=== PATIENT | male | born 1950 | race Caucasian/White ===

== ENCOUNTER 2017-08-06 19:17 | Observation (INO) | payer BC ==
[~2017-08-06] VITALS: Ht 177.8 cm; Wt 96.0 kg
[2017-08-06 19:31] VITALS: BP 226/107; PULSE 101; RESP 22; TEMP 100.2; O2SAT 94
--- NOTE | 2017-08-06 20:05 | PD ---
HPI Chief Complaint: Cold / Flu Symptoms Time Seen by Provider: 19:46 Travel History International Travel<30 days: No Contact w/Intl Traveler<30days: No Traveled to known affect area: No History of Present Illness HPI Patient is a 66-year-old male who for the last week is a coughing shortness of breath bronchitis-like feeling bringing up green phlegm. he is taking over-the- counter phlegm loosening or he says as well as Tylenol without any relief of his symptoms. Patient has not seen a doctor in many years his blood pressure when I walk in the room is 236/110. He says he knows he has hypertension but has not seen a doctor in years is not taking any meds. Patient said he had a stress test 15 years ago that was normal and he does some aerobic exercise he teaches karmilly at the . Denies chest pain but + shortness of breath Main complaint is shortness of breath getting worse over the last week not responding to tewi-xmb-trjwzgk medications . Worsens when he lies flat and then he wakes up feeling as if he suffocating . and get short of breath with any exertion Sx getting worse PFSH Past Medical History Tetanus Vaccination: > 5 Years Influenza Vaccination: No Social History Alcohol Use: Yes (5 Drinks/day) Tobacco Use: Yes (1 PPD) Substance Use: Yes (Marijuana/Daily ) Allergies-Medications (Allergen,Severity, Reaction): Coded Allergies: No Known Allergies (Unverified , 08/06/17) Reported Meds & Prescriptions Reported Meds & Active Scripts Active Review of Systems Except as stated in HPI: all other systems reviewed are Neg General / Constitutional: Positive: Fever Respiratory: Positive: Cough, Shortness of Breath, Wheezing Physical Exam Narrative GENERAL: awake alert no signs of resp distress SKIN: Warm and dry. HEAD: Atraumatic. Normocephalic. EYES: Pupils equal and round. No scleral icterus. No injection or drainage. ENT: No nasal bleeding or discharge. Mucous membranes pink and moist. NECK: Trachea midline. No JVD. CARDIOVASCULAR: Regular rate and rhythm. RESPIRATORY: diffuse wheeze expiratory in all og bilateral GASTROINTESTINAL: Abdomen soft, non-tender, nondistended. Hepatic and splenic margins not palpable. MUSCULOSKELETAL: Extremities without clubbing, cyanosis, or edema. No obvious deformities. NEUROLOGICAL: Awake and alert. No obvious cranial nerve deficits. Motor grossly within normal limits. Five out of 5 muscle strength in the arms and legs. Normal speech. PSYCHIATRIC: Appropriate mood and affect; insight and judgment normal. Data Data Last Documented VS Orders Orders Albuterol-Ipratropium Neb (Duoneb Neb) (08/06/17 20:15) Methylprednisolone So Succ Inj (Solumedr (08/06/17 20:15) Lisinopril (Prinivil) (08/06/17 20:15) Guaifen-Cod 200-20 Mg/10ml Liq (Robituss (08/06/17 20:15) Complete Blood Count With Diff (08/06/17 20:03) Comprehensive Metabolic Panel (08/06/17 20:03) Chest, Pa & Lat (08/06/17 ) Ketorolac Inj (Toradol Inj) (08/06/17 21:00) Influenzae A/B Antigen (08/06/17 20:53) Albuterol-Ipratropium Neb (Duoneb Neb) (08/06/17 22:00) Levofloxacin 750 Mg Premix Inj (Levaquin (08/06/17 23:00) Admit Order (Ed Use Only) (08/07/17 01:46) Labs Laboratory Tests Test 08/06/17 20:10 White Blood Count 5.6 TH/MM3 Red Blood Count 5.65 MIL/MM3 Hemoglobin 16.0 GM/DL Hematocrit 49.0 % Mean Corpuscular Volume 86.8 FL Mean Corpuscular Hemoglobin 28.3 PG Mean Corpuscular Hemoglobin Concent 32.7 % Red Cell Distribution Width 13.1 % Platelet Count 137 TH/MM3 Mean Platelet Volume 9.0 FL Neutrophils (%) (Auto) 71.4 % Lymphocytes (%) (Auto) 17.1 % Monocytes (%) (Auto) 10.6 % Eosinophils (%) (Auto) 0.1 % Basophils (%) (Auto) 0.8 % Neutrophils # (Auto) 4.0 TH/MM3 Lymphocytes # (Auto) 1.0 TH/MM3 Monocytes # (Auto) 0.6 TH/MM3 Eosinophils # (Auto) 0.0 TH/MM3 Basophils # (Auto) 0.0 TH/MM3 CBC Comment DIFF FINAL Differential Comment Blood Urea Nitrogen 9 MG/DL Creatinine 0.89 MG/DL Random Glucose 101 MG/DL Total Protein 7.8 GM/DL Albumin 3.9 GM/DL Calcium Level 9.0 MG/DL Alkaline Phosphatase 94 U/L Aspartate Amino Transf (AST/SGOT) 47 U/L Alanine Aminotransferase (ALT/SGPT) 50 U/L Total Bilirubin 1.0 MG/DL Sodium Level 134 MEQ/L Potassium Level 3.6 MEQ/L Chloride Level 97 MEQ/L Carbon Dioxide Level 27.6 MEQ/L Anion Gap 9 MEQ/L Estimat Glomerular Filtration Rate 86 ML/MIN MDM Medical Decision Making Medical Screen Exam Complete: Yes Emergency Medical Condition: Yes Differential Diagnosis Bronchitis vs FLU vs reactive airway due to URI vs new onset COPD or New onset CHF Narrative Course CHEST XRAY no obvious PNA , pt given NEBS and Solumedrol for inflammation and still desaturation on RA to 88% and then Levaquin IV and another Duoneb 4 hr observation hoping for improvemen to possible t home discharge and outpt treatment , still on RA desaturates to 88 needs admission to observation Diagnosis Primary Impression: Bronchitis Scripts Ipratropium-Albuterol Inh (Combivent Respimat Inh) 20-100 Care Home/Act Aero 1 PUFF INH QID for Asthma Management, #1 INHALER 0 Refills Prov: Joe Leyva 08/08/17 [guaiFEN-COD 200-20 MG/10ML LIQ] 10 ML SYRP No Conflict Check 10 ML PO Q6H Y for COUGH for 3 Days, #5 OZ Prov: Joe Leyva 08/08/17 Methylprednisolone Dosepak (Medrol Dosepak) 4 Mg Dspk 4 MG PO DIRECTED, #1 DSPK 0 Refills Per Pharmacist direction Prov: Joe Leyva 08/08/17 Lisinopril (Lisinopril) 10 Mg Tab 10 MG PO DAILY for Blood Pressure Management for 30 Days, #30 TAB Prov: Joe Leyva 08/08/17 Levofloxacin (Levaquin) 750 Mg Tablet 750 MG PO Q24H for Infection for 7 Days, #7 TAB Prov: Joe Leyva 08/08/17 Sonido Avina MD August 06, 2017 20:05
[2017-08-06 20:10] VITALS: BP 178/85; PULSE 98; RESP 22; O2SAT 96
[2017-08-06] MEDS ORDERED: guaiFENesin/CODEINE SYRUP 200 MG/20 MG/10 ML CUP PO ONE (20:15)
[2017-08-06] MEDS ORDERED: LISINOPRIL 20 MG TAB PO ONE (20:15)
[2017-08-06] MEDS ORDERED: RESP: ALBUTEROL 2.5 MG/IPRATROPIUM 0.5 MG NEB (SCH) NEB ONE ×2 (20:15→22:00)
[2017-08-06] MEDS ORDERED: methylPREDNISolone SOD SUCC 125 MG/2 ML VIAL IV PUSH ONE (20:15)
[2017-08-06 20:21] LABS: BASOPHIL % 0.8 % (0.0-2.0); EOSINOPHIL % 0.1 % (0.0-4.0); LYMPH % 17.1 % (9.0-44.0); MEAN CELL VOLUME 86.8 FL (80.0-100.0); MEAN CORPUSCULAR HEMOGLOBIN 28.3 PG (27.0-34.0); MEAN CORPUSCULAR HGB CONC 32.7 % (32.0-36.0); MONO % 10.6 % (0.0-8.0); MONOCYTE # 0.6 TH/MM3 (0-0.9); NEUT % 71.4 % (16.0-70.0); PLATELET COUNT 137 TH/MM3 (150-450); RED BLOOD COUNT 5.65 MIL/MM3 (4.50-5.90); RED CELL DISTRIBUTION WIDTH 13.1 % (11.6-17.2); WHITE BLOOD COUNT 5.6 TH/MM3 (4.0-11.0)
[2017-08-06 20:30] LABS: CHLORIDE 97 MEQ/L (98-107); SODIUM (NA) 134 MEQ/L (136-145)
[2017-08-06 20:34] LABS: ALBUMIN 3.9 GM/DL (3.4-5.0); BICARBONATE 27.6 MEQ/L (21.0-32.0); BLOOD UREA NITROGEN 9 MG/DL (7-18); GLUCOSE,RANDOM 101 MG/DL (74-106)
[2017-08-06 20:37] LABS: ALT (GPT) 50 U/L (12-78); AST (GOT) 47 U/L (15-37); CREATININE 0.89 MG/DL (0.60-1.30); GLOMERULAR FILTRATION RATE 86 ML/MIN (>89)
[2017-08-06 20:38] LABS: TOTAL PROTEIN 7.8 GM/DL (6.4-8.2)
[2017-08-06 20:40] LABS: ALKALINE PHOSPHATASE 94 U/L (45-117)
[2017-08-06] MEDS ORDERED: KETOROLAC TROMETHAMINE 30 MG/ML (IVP) VIAL IV PUSH ONE (21:00)
--- NOTE | 2017-08-06 21:29 | RADRPT ---
EXAM DATE/TIME: 08/06/2017 20:37 [facility] COMPARISON: No previous studies available for comparison. INDICATIONS : Cough, shortness of breath, fever for 1 week MEDICAL HISTORY : None. SURGICAL HISTORY : None. ENCOUNTER: Initial ACUITY: 1 week PAIN SCORE: 5/10 LOCATION: Bilateral chest FINDINGS: The heart size is normal. The lungs are free of focal consolidation. The lungs do appear mildly hyper inflated on the lateral view. There is borderline prominence of interstitium. CONCLUSION: Questionable prominence of the interstitium otherwise negative chest x-ray. Stewart Spencer MD on August 06, 2017 at 21:26 Board Certified Radiologist. This report was verified electronically.
[2017-08-06 22:45] VITALS: BP 169/88; PULSE 88; RESP 18; O2SAT 97
[2017-08-06] MEDS ORDERED: LEVOFLOXACIN 750 MG PREMIX INJ 150 ML IV ONE (23:00)
[2017-08-07] VITALS (13 sets, daily range): BP systolic 157–199; BP diastolic 68–93; PULSE 75–92; RESP 18–22; TEMP 97.5–98.3; O2SAT 90–99
[2017-08-07] MEDS ORDERED: ENALAPRILAT 1.25 MG/ML VIAL IV PUSH PRN (02:00)
[2017-08-07] MEDS ORDERED: SODIUM CHLORIDE 0.9% FLUSH 10 ML FLUSH IV FLUSH PRN (02:00)
[2017-08-07] MEDS ORDERED: RESP: ALBUTEROL 2.5 MG/3 ML NEB (PRN) INH (02:00)
[2017-08-07] MEDS: HEPARIN SODIUM - SQ 10,000 UNITS/ML VIAL SQ SCH ×2 (02:23→14:24)
[2017-08-07] MEDS: methylPREDNISolone SOD SUCC 125 MG/2 ML VIAL IV PUSH SCH ×4 (02:24→20:05)
[2017-08-07] MEDS: RESP: ALBUTEROL 2.5 MG/IPRATROPIUM 0.5 MG NEB (SCH) INH ×4 (04:07→21:35)
[2017-08-07] MEDS: SODIUM CHLORIDE 0.9% FLUSH 10 ML FLUSH IV FLUSH SCH ×2 (08:59→19:40)
[2017-08-07 09:01] LABS: TROPONIN I LESS THAN 0.02 NG/ML (0.02-0.05)
[2017-08-07] MEDS ORDERED: IOHEXOL 350 MG/ML 10 ML VIAL (for RAD DIAG) IVCONTRAST ONE (11:40)
--- NOTE | 2017-08-07 11:52 | RADRPT ---
EXAM DATE/TIME: 08/07/2017 11:30 [facility] COMPARISON: No previous studies available for comparison. INDICATIONS : Short of breath, cough, fever and elevated D-dimer x 1 week. IV CONTRAST: 75 cc Omnipaque 350 (iohexol) IV RADIATION DOSE: 18.32 CTDIvol (mGy) MEDICAL HISTORY : Cardiovascular disease. Hypertension. SURGICAL HISTORY : None. ENCOUNTER: Initial ACUITY: 1 week PAIN SCALE: 0/10 LOCATION: chest TECHNIQUE: Volumetric scanning of the chest was performed using a pulmonary embolism protocol MIP images were re constructed. Using automated exposure control and adjustment of the mA and/or kV according to patien t size, radiation dose was kept as low as reasonably achievable to obtain optimal diagnostic quality images. DICOM format image data is available electronically for review and comparison. Follow-up recommendations for detected pulmonary nodules are based at a minimum on nodule size and pa tient risk factors according to Fleischner Society Guidelines. FINDINGS: PULMONARY ARTERIES: No filling defects are seen in the pulmonary arteries through the segmental level. LUNGS: There is no consolidation or pneumothorax . No concerning pulmonary nodule is visualized. PLEURAE: There is no pleural thickening or pleural effusion. MEDIASTINUM: Slight prominence of bilateral hilar magalie tissue which is likely reactive. No evidence of mediastina l adenopathy. Coronary calcifications noted. Small hiatal hernia. MUSCULOSKELETAL: Within normal limits for patient age. MISCELLANEOUS: The visualized upper abdominal organs demonstrate no acute abnormality. CONCLUSION: No evidence of pulmonary embolism Stewart Hawkins MD on August 07, 2017 at 11:43 Board Certified Radiologist. This report was verified electronically.
[2017-08-07] MEDS ORDERED: ACETAMINOPHEN 325 MG TAB PO PRN (13:45)
[2017-08-07] MEDS ORDERED: MAGNESIUM HYDROXIDE SUSP 30 ML CUP PO PRN (13:45)
[2017-08-07] MEDS ORDERED: TEMAZEPAM 15 MG CAP PO PRN (13:45)
[2017-08-07] MEDS ORDERED: DOCUSATE SODIUM 100 MG CAP PO PRN (13:45)
[2017-08-07] MEDS ORDERED: CALCIUM CARBONATE 500 MG CHEWABLE TAB CHEW PRN (13:45)
[2017-08-07] MEDS ORDERED: ONDANSETRON HCL 4 MG/2 ML VIAL IV PUSH PRN (13:45)
[2017-08-07] MEDS ORDERED: guaiFENesin/CODEINE SYRUP 200 MG/20 MG/10 ML CUP PO PRN (14:00)
--- NOTE | 2017-08-07 14:05 | HHI.HP ---
[facility] No Primary Care Physician Admission Diagnosis Bronchitis Desaturation Diagnoses: (1) Shortness of breath Diagnosis: Principal (2) Accelerated hypertension Diagnosis: Principal (3) Chronic obstructive pulmonary disease Diagnosis: Principal Chief Complaint: Shortness of breath, dyspnea Travel History International Travel<30 Days: No Contact w/Intl Traveler <30 Da: No Traveled to Known Affected Are: No History of Present Illness 66-year-old male with known history of untreated hypertension, polymyalgia rheumatica who presented the hospital because of shortness of breath , difficulty breathing. Patient indicates that his lobrhe-hy-ueo had flu symptoms approximately 2-3 weeks ago than his developed the same symptoms. Unfortunately he started the same symptoms on Friday with fever, chills, cough , congestion. He had been taken Tylenol, cough medicine without any significant relief. He got to the point where he had significant shortness of breath, he had significantly decreased appetite where he has not really ate anything in 2 days, he cannot sleep for 2 days and because of those reasons he came to emergency department for evaluation. Patient had workup done in the emergency department and it was indicated that he had significant shortness of breath with easy desaturations. There was hypertensive urgency on presentation. Patient was given nebulizer treatments, Toradol, lisinopril in the emergency department with improvement of his blood pressure and symptoms. Is recommended by the ER physician the patient be observed in the hospital for further recommendations and management. Patient denied any chest pain, nausea, vomiting, diarrhea, abdominal pain. Review of Systems Constitutional: COMPLAINS OF: Fever, Change in appetite Respiratory: COMPLAINS OF: Cough, Shortness of breath Cardiovascular: COMPLAINS OF: Dyspnea on Exertion, Orthopnea Except as stated in HPI: all other systems reviewed are Neg Past Family Social History Past Medical History Hypertension, untreated Polymyalgia rheumatica Chronic left knee pain Polysubstance abuse Past Surgical History Left knee meniscus repair Reported Medications No home medication Allergies: Coded Allergies: No Known Allergies (Unverified , 08/06/17) Family History Reviewed is significant for mother having breast cancer. Patient indicates that by the end of his parents live they pretty much had all medical conditions. Social History Patient does smoke a pack of cigarettes a day since he was 31 years old. Patient does drink at least 5 alcoholic beverages nightly between 8 and 10 PM. Patient also uses marijuana daily. Patient also uses kratom daily for pain relief Physical Exam Vital Signs Vital Signs Date Time Temp Pulse Resp B/P (MAP) Pulse Ox O2 Delivery O2 Flow Rate FiO2 08/07/17 12:30 98.2 92 20 166/80 (108) 95 08/07/17 09:33 95 Nasal Cannula 2.00 08/07/17 08:59 94 Nasal Cannula 2.00 08/07/17 08:38 97.5 86 19 165/76 (105) 94 08/07/17 04:30 180/76 (110) Automatic Cuff 08/07/17 04:07 98 Nasal Cannula 2.00 08/07/17 03:00 97.9 75 22 199/93 (128) 98 08/07/17 03:00 98 Nasal Cannula 2.00 08/07/17 02:50 08/07/17 02:28 77 18 157/68 (97) 99 Nasal Cannula 2.00 08/06/17 22:45 88 18 169/88 (115) 97 Nasal Cannula 2.00 08/06/17 20:10 98 22 178/85 (116) 96 Nasal Cannula 2.00 08/06/17 19:46 98 24 95 Nasal Cannula 2.00 08/06/17 19:31 100.2 101 22 226/107 (146) 94 Physical Exam GENERAL: Well-developed, well-nourished, in no acute distress. alert and orientated HEENT: Head is normocephalic without any lesions or masses noted. Facial features are symmetric. Eyes: Pupils equal round reactive to light. Extraocular muscles are intact. Conjunctivae were clear. Oropharyngeal: Pharynx without any erythema edema. Tongue is midline without deviation. Buccal mucosa is moist without any masses or lesions NECK: Supple without any masses. Trachea midline no deviation. No JVD, no bruits are appreciated CARDIAC: Regular rhythm, regular rate. S1/S2 are heard. No murmurs gallops or rubs. LUNGS: Mild fine wheezing noted in the bases. No rhonchi or rales. No use of accessory muscles on inspiration or expiration. ABDOMEN: Soft, nontender. Nondistended. Bowel sounds heard in all 4 quadrants. No organomegaly or masses. Negative rebound, negative guarding EXTREMITIES: No edema, pulses are equal bilaterally. No cyanosis or clubbing NEUROLOGY: Mood and affect appear appropriate. Cranial nerves II through XII grossly intact. Muscle strength 5/5 in upper and lower extremities bilaterally. Deep tendon reflexes are 2+ in upper and lower extremities bilaterally. Laboratory Laboratory Tests Test 08/06/17 20:10 08/07/17 03:00 08/07/17 07:50 White Blood Count 5.6 Red Blood Count 5.65 Hemoglobin 16.0 Hematocrit 49.0 Mean Corpuscular Volume 86.8 Mean Corpuscular Hemoglobin 28.3 Mean Corpuscular Hemoglobin Concent 32.7 Red Cell Distribution Width 13.1 Platelet Count 137 Mean Platelet Volume 9.0 Neutrophils (%) (Auto) 71.4 Lymphocytes (%) (Auto) 17.1 Monocytes (%) (Auto) 10.6 Eosinophils (%) (Auto) 0.1 Basophils (%) (Auto) 0.8 Neutrophils # (Auto) 4.0 Lymphocytes # (Auto) 1.0 Monocytes # (Auto) 0.6 Eosinophils # (Auto) 0.0 Basophils # (Auto) 0.0 CBC Comment DIFF FINAL Differential Comment Blood Urea Nitrogen 9 Creatinine 0.89 Random Glucose 101 Total Protein 7.8 Albumin 3.9 Calcium Level 9.0 Alkaline Phosphatase 94 Aspartate Amino Transf (AST/SGOT) 47 Alanine Aminotransferase (ALT/SGPT) 50 Total Bilirubin 1.0 Sodium Level 134 Potassium Level 3.6 Chloride Level 97 Carbon Dioxide Level 27.6 Anion Gap 9 Estimat Glomerular Filtration Rate 86 Urine Opiates Screen POS Urine Barbiturates Screen NEG Urine Amphetamines Screen NEG Urine Benzodiazepines Screen NEG Urine Cocaine Screen NEG Urine Cannabinoids Screen POS D-Dimer Quantitative (PE/DVT) 0.55 Total Creatine Kinase 200 Creatine Kinase MB 3.1 Troponin I LESS THAN 0.02 Date/Time Source Procedure Growth Status 08/06/17 21:00 Nasal Aspirate Influenza Types A,B Antigen (DAYRON) - Final NEGATIVE FOR FLU A AND B ANTIGEN.... Complete Result Diagram: 08/06/17200908/06/172009 Imaging Last Impressions CT Angiography 08/07/17 0000 Signed Impressions: Service Date/Time: July 11:30 - CONCLUSION: No evidence of pulmonary embolism Stewart Hawkins MD Chest X-Ray 08/06/17 0000 Signed Impressions: Service Date/Time: Sunday, August 06, 2017 20:37 - CONCLUSION: Questionable prominence of the interstitium otherwise negative chest x-ray. MD Christiane Reed VTE Risk Assessment Caprini VTE Risk Assessment: Mod/High Risk (score >= 2) Caprini Risk Assessment Model Point Value = 1 Point Value = 2 Point Value = 3 Point Value = 5 Age 41-60 Minor surgery BMI > 25 kg/m2 Swollen legs Varicose veins or History of unexplained or recurrent spontaneous Oral contraceptives or hormone replacement Sepsis (< 1 month) Serious lung disease, including pneumonia (< 1 month) Abnormal pulmonary function Acute myocardial infarction Congestive heart failure (< 1 month) History of inflammatory bowel disease Medical patient at bed rest Age 61-74 Arthroscopic surgery Major open surgery (> 45 min) Laparoscopic surgery (> 45 min) Malignancy Confined to bed (> 72 hours) Immobilizing plaster cast Central venous access Age >= 75 History of VTE Family history of VTE Factor V Leiden Prothrombin [id number] Lupus anticoagulant Anticardiolipin antibodies Elevated serum homocysteine Heparin-induced thrombocytopenia Other congenital or acquired thrombophilia Stroke (< 1 month) Elective arthroplasty Hip, pelvis, or leg fracture Acute spinal cord injury (< 1 month) Prophylaxis Regimen Total Risk Factor Score Risk Level Prophylaxis Regimen 0-1 Low Early ambulation 2 Moderate Order ONE of the following: *Sequential Compression Device (SCD) *Heparin 5000 units SQ BID 3-4 Higher Order ONE of the following medications: *Heparin 5000 units SQ TID *Enoxaparin/Lovenox 40 mg SQ daily (WT < 150 kg, CrCl > 30 mL/min) *Enoxaparin/Lovenox 30 mg SQ daily (WT < 150 kg, CrCl > 10-29 mL/min) *Enoxaparin/Lovenox 30 mg SQ BID (WT < 150 kg, CrCl > 30 mL/min) AND/OR *Sequential Compression Device (SCD) 5 or more Highest Order ONE of the following medications: *Heparin 5000 units SQ TID (Preferred with Epidurals) *Enoxaparin/Lovenox 40 mg SQ daily (WT < 150 kg, CrCl > 30 mL/min) *Enoxaparin/Lovenox 30 mg SQ daily (WT < 150 kg, CrCl > 10-29 mL/min) *Enoxaparin/Lovenox 30 mg SQ BID (WT < 150 kg, CrCl > 30 mL/min) AND *Sequential Compression Device (SCD) Assessment and Plan Assessment and Plan 66-year-old male who presented the hospital because of shortness of breath, dyspnea Shortness of breath, dyspnea which could be related to multiple etiologies to include upper respiratory viral infection, COPD, pulmonary emboli, acute coronary event, hypertensive urgency -Chest x-ray did not indicate any acute abnormality -Influenza testing was negative -D-dimer was elevated, pulmonary angiogram was performed which did not indicate any pulmonary emboli -Cardiac enzyme and EKG were performed which did not indicate any acute coronary event -Likely patient has acute exacerbation of chronic obstructive pulmonary disease secondary to recent viral infection Acute exacerbation of chronic obstructive pulmonary disease -Continue O2 sat mentation maintain O2 sats greater than 92% -Continue Levaquin 750 mg daily -Continue Solu-Medrol 60 mg IV every 6 hours -Continue duo nebs -Start Robitussin-AC for underlying cough Hypertension, presenting with accelerated hypertension -Start lisinopril 10 mg daily -Vasotec IV as needed Polysubstance abuse -Patient counseled on cessation DVT prevention -Subcutaneous heparin Joe Leyva August 07, 2017 14:05
[2017-08-07] MEDS: LISINOPRIL 10 MG TAB PO SCH (14:23)
--- NOTE | 2017-08-07 19:06 | EKG ---
Date Performed: 08/07/2017 Time Performed: 08:04:50 PTAGE: 66 years EKG: Sinus rhythm NONSPECIFIC ST & T-WAVE ABNORMALITY BORDERLINE ECG NO PREVIOUS TRACING DOCTOR: Soto Boogie Interpretating Date/Time 08/07/2017 19:05:44
[2017-08-07] MEDS ORDERED: LEVOFLOXACIN 750 MG TAB PO SCH (23:00)
[2017-08-08] VITALS: BP 143/74; PULSE 88; RESP 20; TEMP 97.7; O2SAT 94
[2017-08-08] MEDS: HEPARIN SODIUM - SQ 10,000 UNITS/ML VIAL SQ SCH ×2 (02:30→14:00)
[2017-08-08] MEDS: methylPREDNISolone SOD SUCC 125 MG/2 ML VIAL IV PUSH SCH ×3 (02:31→14:00)
[2017-08-08] MEDS: RESP: ALBUTEROL 2.5 MG/IPRATROPIUM 0.5 MG NEB (SCH) INH ×2 (03:56→10:39)
[2017-08-08 06:57] LABS: EOSINOPHIL % 0.1 % (0.0-4.0); HEMATOCRIT 45.9 % (39.0-51.0); LYMPH % 5.6 % (9.0-44.0); LYMPHOCYTE # 0.4 TH/MM3 (1.0-4.8); MEAN CELL VOLUME 87.6 FL (80.0-100.0); MEAN CORPUSCULAR HEMOGLOBIN 28.6 PG (27.0-34.0); MEAN CORPUSCULAR HGB CONC 32.7 % (32.0-36.0); MEAN PLATELET VOLUME 9.3 FL (7.0-11.0); MONO % 4.4 % (0.0-8.0); MONOCYTE # 0.3 TH/MM3 (0-0.9); NEUT % 89.9 % (16.0-70.0); PLATELET COUNT 132 TH/MM3 (150-450); RED BLOOD COUNT 5.24 MIL/MM3 (4.50-5.90); RED CELL DISTRIBUTION WIDTH 13.1 % (11.6-17.2); WHITE BLOOD COUNT 7.7 TH/MM3 (4.0-11.0)
[2017-08-08 07:09] LABS: BICARBONATE 29.2 MEQ/L (21.0-32.0); CALCIUM 8.7 MG/DL (8.5-10.1)
[2017-08-08 07:13] LABS: CREATININE 0.87 MG/DL (0.60-1.30)
[2017-08-08 08:00] VITALS: BP 144/69; PULSE 79; RESP 19; TEMP 98.6; O2SAT 96
[2017-08-08] MEDS: SODIUM CHLORIDE 0.9% FLUSH 10 ML FLUSH IV FLUSH SCH (08:18)
[2017-08-08] MEDS: LISINOPRIL 10 MG TAB PO SCH (08:18)
[2017-08-08 10:05] VITALS: RESP 19
[2017-08-08 10:43] VITALS: O2SAT 92
[2017-08-08] MEDS ORDERED: LISI10TA3 PO (11:45)
[2017-08-08] MEDS ORDERED: MEDR4PAK PO (11:45)
[2017-08-08] MEDS ORDERED: LEVA750T9 PO (11:45)
[2017-08-08] MEDS ORDERED: guaiFEN-COD 200-20 MG/10ML LIQ PO (11:45)
--- NOTE | 2017-08-08 11:45 | HHI.DCPOC ---
Discharge Care Plan Diagnosis: (1) Chronic obstructive pulmonary disease (2) Accelerated hypertension Goals to Promote Your Health * To prevent worsening of your condition and complications * To maintain your health at the optimal level Directions to Meet Your Goals Take your medications as prescribed Follow your dietary instruction Follow activity as directed Keep your appointments as scheduled Take your immunizations and boosters as scheduled If your symptoms worsen call your PCP, if no PCP go to Urgent Care Center or Emergency Room Smoking is Dangerous to Your Health. Avoid second hand smoke Call the 24-hour hour crisis hotline for domestic abuse at Joe Leyva August 08, 2017 11:45
[2017-08-08] MEDS ORDERED: IPRAAER INH (11:46)
--- NOTE | 2017-08-08 11:53 | HHI.DS ---
Discharge Summary Admission Date August 07, 2017 at 01:48 Discharge Date: August 08, 2017 Admitting Diagnosis Bronchitis Desaturation (1) Shortness of breath ICD Code: R06.02 - Shortness of breath Diagnosis: Principal (2) Accelerated hypertension ICD Code: I10 - Essential (primary) hypertension Diagnosis: Principal (3) Chronic obstructive pulmonary disease ICD Code: J44.9 - Chronic obstructive pulmonary disease, unspecified Diagnosis: Principal Procedures None Brief History - From Admission 66-year-old male with known history of untreated hypertension, polymyalgia rheumatica who presented the hospital because of shortness of breath , difficulty breathing. Patient indicates that his cdjqth-yv-qit had flu symptoms approximately 2-3 weeks ago than his developed the same symptoms. Unfortunately he started the same symptoms on Friday with fever, chills, cough , congestion. He had been taken Tylenol, cough medicine without any significant relief. He got to the point where he had significant shortness of breath, he had significantly decreased appetite where he has not really ate anything in 2 days, he cannot sleep for 2 days and because of those reasons he came to emergency department for evaluation. Patient had workup done in the emergency department and it was indicated that he had significant shortness of breath with easy desaturations. There was hypertensive urgency on presentation. Patient was given nebulizer treatments, Toradol, lisinopril in the emergency department with improvement of his blood pressure and symptoms. Is recommended by the ER physician the patient be observed in the hospital for further recommendations and management. Patient denied any chest pain, nausea, vomiting, diarrhea, abdominal pain. CBC/BMP: 08/08/17 0540 08/08/17 0540 Significant Findings Laboratory Tests Test 08/06/17 20:10 08/07/17 03:00 08/07/17 07:50 08/08/17 05:40 Platelet Count 137 TH/MM3 (150-450) 132 TH/MM3 (150-450) Neutrophils (%) (Auto) 71.4 % (16.0-70.0) 89.9 % (16.0-70.0) Monocytes (%) (Auto) 10.6 % (0.0-8.0) Aspartate Amino Transf (AST/SGOT) 47 U/L (15-37) Sodium Level 134 MEQ/L (136-145) 135 MEQ/L (136-145) Chloride Level 97 MEQ/L (98-107) Estimat Glomerular Filtration Rate 86 ML/MIN (>89) 88 ML/MIN (>89) Urine Opiates Screen POS (NEG) Urine Cannabinoids Screen POS (NEG) D-Dimer Quantitative (PE/DVT) 0.55 MG/L FEU (0.00-0.50) Troponin I LESS THAN 0.02 NG/ML Lymphocytes (%) (Auto) 5.6 % (9.0-44.0) Lymphocytes # (Auto) 0.4 TH/MM3 (1.0-4.8) Random Glucose 154 MG/DL (74-106) Imaging Last Impressions CT Angiography 08/07/17 0000 Signed Impressions: Service Date/Time: July 11:30 - CONCLUSION: No evidence of pulmonary embolism Stewart Hawkins MD Chest X-Ray 08/06/17 0000 Signed Impressions: Service Date/Time: Sunday, August 06, 2017 20:37 - CONCLUSION: Questionable prominence of the interstitium otherwise negative chest x-ray. Stewart Spencer MD Hospital Course 66-year-old male with known history of chronic tobacco use, hypertension untreated who presented to hospital because of shortness of breath , dyspnea, no appetite. Patient states that he picked up a viral infection from his latrhn-os-bqn and mother with upper respiratory symptoms to include cough, congestion and progressively got worse where he gets significantly short of breath. He came to the emergency department for evaluation and found to have desaturation with easy recovery. Patient does have history of tobacco use and likely underlying COPD exacerbated by upper respiratory infection. Patient was admitted to the hospital on O2 supplementation, Levaquin, duo nebs, Solu- Medrol. Patient tolerated treatment well. He is no longer requiring any oxygen for O2 saturations. Patient is very eager to go home. Patient does not have a prior medical doctor and does not take any medications for his blood pressure. His blood pressure was significantly accelerated upon presentation, however patient was started on lisinopril with significant reduction in the blood pressure. Presently his systolic pressure is 144. Patient is doing well. We will plan discharge accordingly. Patient was recommended to follow- up with a primary medical doctor. Pt Condition on Discharge: Stable Discharge Disposition: Discharge Home Discharge Time: > 30 minutes Discharge Instructions DIET: Follow Instructions for: Heart Healthy Diet Activities you can perform: Regular-No Restrictions Follow up Referrals: PCP Follow-up - 1 Week New Medications: Ipratropium-Albuterol Inh (Combivent Respimat Inh) 20-100 Long-Term/Act Aero 1 PUFF INH QID for Asthma Management, #1 INHALER 0 Refills Methylprednisolone Dosepak (Medrol Dosepak) 4 Mg Dspk 4 MG PO DIRECTED, #1 DSPK 0 Refills Per Pharmacist direction Levofloxacin (Levaquin) 750 Mg Tablet 750 MG PO Q24H for Infection for 7 Days, #7 TAB Lisinopril (Lisinopril) 10 Mg Tab 10 MG PO DAILY for Blood Pressure Management for 30 Days, #30 TAB [guaiFEN-COD 200-20 MG/10ML LIQ] () 10 ML SYRP 10 ML PO Q6H PRN for COUGH for 3 Days, #5 OZ Joe Leyva August 08, 2017 11:53
[2017-08-08 12:00] VITALS: BP 142/70; PULSE 86; RESP 20; TEMP 97.8; O2SAT 95
== END 2017-08-08 15:16 | disposition home or self-care (01) ==
LOC: PHED 19:17 → PHEDA 08-07 01:48 → PH3B 08-07 02:45
PROVIDERS: ADMIT Hospitalist; ATTEND Hospitalist
DX: J44.1 Chronic obstructive pulmonary disease with (acute) exacerbation (principal); M35.3 Polymyalgia rheumatica; F17.210 Nicotine dependence, cigarettes, uncomplicated; F12.90 Cannabis use, unspecified, uncomplicated; F19.10 Other psychoactive substance abuse, uncomplicated; I16.0 Hypertensive urgency; R94.31 Abnormal electrocardiogram [ECG] [EKG]; K44.9 Diaphragmatic hernia without obstruction or gangrene; I25.10 Atherosclerotic heart disease of native coronary artery without angina pectoris; Z79.899 Other long term (current) drug therapy; I10 Essential (primary) hypertension
CPT/HCPCS: 71046; 71275; 80048; 80053; 80307; 82550; 82552; 84484; 85025; 85379; 87804; 93005; 94150; 94640; 94664; 96365; 96366; 96372; 96375; 96376; 99285; G0378; J1644; J1885; J1956; J2930; Q9967

== ENCOUNTER 2017-10-04 01:36 | Observation (INO) ==
[2017-10-04] MEDS ORDERED: MethylPREDNISolone Sod Succinate Inj 125 MG/2 ML Vial IV.PUSH ONE (04:26)
[2017-10-04] MEDS ORDERED: Famotidine Premix Inj 20 MG/50 ML PIGGYBACK IV.SIG ONE (04:26)
--- NOTE | 2017-10-04 04:34 | ED ---
HPI General Chief Complaint: Abdominal Pain Stated Complaint: Constipated 4 days,stomach pain Time Seen by Provider: 10/04/17 04:10 History of Present Illness HPI narrative: Patient presents to the ER complaining of 2 day history of abdominal pain. Pain is described as being epigastric, burning in sensation, nonradiating, 2 out of 10, intermittent, new onset. He has been sick for the past one half weeks with constipation. Saw his regular doctor and was given medicine to have a move his bowels. Still complaining of arthritic back pain and Tylenol not working. He took ibuprofen but states that he feels like it is because of burning holding his stomach. He denies fever, chills, nausea, vomiting, shortness of breath, but reports "tightness around his rib cage." While patient in the waiting room, c/o lip starting to swell. Related Data Home Medications Medication Instructions Recorded Confirmed lisinopril 20 mg PO BID 10/04/17 10/04/17 Allergies Allergy/AdvReac Type Severity Reaction Status Date / Time No Known Allergies Allergy Verified 10/04/17 05:29 Review of Systems ROS Unobtainable All other systems reviewed negative except as stated in HPI [facility] Medical History Medical History Arthritis (Acute) COPD (chronic obstructive pulmonary disease) (Acute) Chronic back pain (Acute) GI bleeding (Acute) HTN (hypertension) (Acute) Polymyalgia (Acute) Stomach ulcer (Acute) Surgical History Surgical History History of left knee surgery (Acute) Social History Social History Substance History: Active Abuse Smoking Status: Current every day smoker Tobacco Type: Cigarettes How Often Do You Have a Drink Containing Alcohol: 4 or more times a week Recent Out of Country Travel within the Last 8 Weeks: No Exam Narrative Exam Narrative: GENERAL: No acute distress SKIN: Focused skin assessment warm/dry. HEAD: Atraumatic. Normocephalic. EYES: Pupils equal and round. No scleral icterus. No injection or drainage. ENT: No nasal bleeding or discharge. Mucous membranes pink and moist. L upper lip swelling NECK: Trachea midline. No JVD. CARDIOVASCULAR: Regular rate and rhythm. No murmur appreciated. RESPIRATORY: No accessory muscle use. + exp wheezes bilat GASTROINTESTINAL: Abdomen soft, non-tender, nondistended. Hepatic and splenic margins not palpable. MUSCULOSKELETAL: No obvious deformities. No clubbing. No cyanosis. No edema. NEUROLOGICAL: Awake and alert. No obvious cranial nerve deficits. Motor grossly within normal limits. Normal speech. PSYCHIATRIC: Appropriate mood and affect; insight and judgment normal. Course Initial Documented Vital Signs Temperature 97.4 F L 10/04/17 01:51 Pulse Rate 14 L 10/04/17 01:51 Blood Pressure 149/94 H 10/04/17 01:51 Pulse Oximetry 99 10/04/17 01:51 Last Documented Vital Signs Temperature 97.4 F L 10/04/17 01:51 Pulse Rate 65 10/04/17 05:39 Respiratory Rate 18 10/04/17 05:39 Blood Pressure 165/95 H 10/04/17 05:39 Pulse Oximetry 100 10/04/17 05:39 Medical Decision Making MDM Narrative Medical decision making narrative: Patient presents to ER with epigastric abd pain. Patient placed on cardiac cath lab manager, continuous pulse ox, and CT/Labs ordered. As patient may be having an allergic reaction, also given pepcid 20mg IV, benadryl 25mg IV, solumedrol 125mg IV. He does not want a breathing treatment. ECG: SR, rate 71, normal axis, STD V3-V6 CXR-No acute finding CT abd/pelvis-CONCLUSION:1. No acute findings in the abdomen and pelvis.2. Moderate amount of stool in the transverse colon. No evidence of bowel dilatation.3. Prominent bilateral hip arthrosis. Labs: Elevated lipase 0511: Patient now requesting breathing treatment. 1 duoneb ordered. Patient given 2mg IV morphine, 1L IV NS. To be admitted for obs for pancreatitis , STD on ECG/chest tightness, COPD exacerbation Differential Diagnosis Differential Diagnosis: GERD, PUD, pancreatitis, ACS, allergic reaction, COPD exacerbation, constipation Lab Data Result diagrams: 10/04/17 04:45 10/04/17 04:45 Lab Results 10/04/17 10/04/17 Range/Units 04:45 04:45 CBC w Diff Auto diff final WBC 7.4 (4.0-11.0) th/mm3 RBC 5.12 (4.50-5.90) mil/mm3 Hgb 15.8 (13.0-17.0) gm/dL Hct 45.2 (39.0-51.0) % MCV 88.3 (80.0-100.0) fL MCH 30.9 (27.0-34.0) pg MCHC 35.0 (32.0-36.0) % RDW 13.3 (11.6-17.2) % Plt Count 238 (150-450) th/mm3 MPV 9.1 (7.0-11.0) fL Neut % (Auto) 72.3 H (16.0-70.0) % Lymph % (Auto) 18.6 (9.0-44.0) % Real % (Auto) 6.6 (0.0-8.0) % Eos % (Auto) 1.9 (0.0-4.0) % Baso % (Auto) 0.6 (0.0-2.0) % Neut # (Auto) 5.4 (1.8-7.7) th/mm3 Lymph # (Auto) 1.4 (1.0-4.8) th/mm3 Real # (Auto) 0.5 (0.0-0.9) th/mm3 Eos # (Auto) 0.1 (0.0-0.4) th/mm3 Baso # (Auto) 0.0 (0.0-0.2) th/mm3 WBC Differential . Differential Comment . Sodium 137 (136-145) meq/L Potassium 4.0 (3.5-5.1) meq/L Chloride 101 (98-107) meq/L Carbon Dioxide 25.9 (21.0-32.0) meq/L Anion Gap 10 (5-15) meq/L BUN 7 (7-18) mg/dL Creatinine 0.90 (0.60-1.30) mg/dL Estimated GFR 85 L (>89) mL/min Random Glucose 105 (74-106) mg/dL Calcium 9.2 (8.5-10.1) mg/dL Magnesium 2.2 (1.5-2.5) mg/dL Total Bilirubin 1.0 (0.2-1.0) mg/dL AST 16 (15-37) U/L ALT 21 (12-78) U/L Alkaline Phosphatase 81 (45-117) U/L Troponin I Less than 0.02 L (0.02-0.05) ng/mL Total Protein 7.8 (6.4-8.2) g/dL Albumin 3.9 (3.4-5.0) g/dL Lipase 1402 H (73-393) U/L Imaging Data Radiologist's impression: ITS Impressions Abdomen/Pelvis CT 10/04/17 04:26 CONCLUSION: 1. No acute findings in the abdomen and pelvis. 2. Moderate amount of stool in the transverse colon. No evidence of bowel dilatation. 3. Prominent bilateral hip arthrosis. Chest X-Ray 10/04/17 04:28 CONCLUSION: No acute cardiopulmonary disease identified. Discharge Plan Discharge Disposition Patient Disposition: 30 Still Patient Discharge Condition Condition: Stable Discharge Details Discharge Problem: Pancreatitis, Chest pain, Acute exacerbation of chronic obstructive pulmonary disease (COPD) Physicians Team ED Provider: Delfina Coreas Primary Care Provider: Rigo Vang Rxs /Orders / Referrals /Forms Prescriptions: No Action lisinopril 20 mg PO BID RF: 0 Discharge Interventions Interventions: Vital Signs Last Done: 10/04/17 05:39 Status ED Status: With Doctor
[2017-10-04] MEDS ORDERED: FAMOTIDINE IV.SIG ONE (05:00)
[2017-10-04] MEDS ORDERED: SODIUM CHLOR 0.9% IV.SIG ONE (05:00)
--- NOTE | 2017-10-04 05:20 | CT ---
EXAM DATE: 10/04/2017 4:55 AM EDT AGE/SEX: 66 years / Male INDICATIONS: Constipation for 1 week. CLINICAL DATA: This is the patient's initial encounter. Patient reports that signs and symptoms have been present for 1 week and indicates a pain score of 3/10. MEDICAL/SURGICAL HISTORY: Chronic obstructive pulmonary disease. Hypertension. Substance abuse None. RADIATION DOSE: 15.34 CTDI (mGy) COMPARISON: No prior exams available for comparison. TECHNIQUE: Multiple contiguous axial images were obtained through the abdomen. Images were obtained using multiple row detector helical technique. Using automated exposure control and adjustment of the mA and/or kV according to patient size, radiation dose was kept as low as reasonably achievable to o btain optimal diagnostic quality images. DICOM format image data is available electronically for rev iew and comparison. FINDINGS: Lower Lungs: The visualized lower lungs are clear. Liver: The liver has a homogeneous density without space-occupying lesion. There is no dilation of th e biliary tree. Spleen: Multiple splenic calcifications likely representing granulomas. Spleen size within normal li mits. Pancreas: Unremarkable without mass or calcification. Kidneys: Normal in size and shape. No evidence of mass or hydronephrosis. Adrenal Glands: Unremarkable. Aorta: Diffuse aortoiliac calcification. Aortic diameter within normal limits. Bowel/Mesentery: No evidence of bowel dilatation. No free air or free fluid. Appendix not identified . Abdominal Wall: Intact. Retroperitoneum: No evidence of adenopathy in the retrocrural, para-aortic, or deep pelvic regions. Bladder: Contours are smooth. Reproductive Organs: No abnormal masses or calcifications seen. Inguinal: The inguinal region is unremarkable without evidence of adenopathy. Bony Structures: Degenerative findings of the lower lumbar spine facet joints. Prominent bilateral h ip arthrosis of bilateral sacroiliac joint arthrosis. CONCLUSION: 1. No acute findings in the abdomen and pelvis. 2. Moderate amount of stool in the transverse colon. No evidence of bowel dilatation. 3. Prominent bilateral hip arthrosis. Electronically signed by: Brice High MD 10/04/2017 5:19 AM EDT
[2017-10-04 05:40] LABS: Baso % (Auto) 0.6 % (0.0-2.0); Eos # (Auto) 0.1 th/mm3 (0.0-0.4); Eos % (Auto) 1.9 % (0.0-4.0); Hematocrit 45.2 % (39.0-51.0); Hemoglobin 15.8 gm/dL (13.0-17.0); Lymph # (Auto) 1.4 th/mm3 (1.0-4.8); Lymph % (Auto) 18.6 % (9.0-44.0); Mean Corpuscular Hemoglobin 30.9 pg (27.0-34.0); Mean Corpuscular Volume 88.3 fL (80.0-100.0); Mean Platelet Volume 9.1 fL (7.0-11.0); Mono # (Auto) 0.5 th/mm3 (0.0-0.9); Mono % (Auto) 6.6 % (0.0-8.0); Neut # (Auto) 5.4 th/mm3 (1.8-7.7); Neut % (Auto) 72.3 % (16.0-70.0); Platelet Count 238 th/mm3 (150-450); Red Blood Count 5.12 mil/mm3 (4.50-5.90); Red Cell Distribution Width 13.3 % (11.6-17.2); White Blood Count 7.4 th/mm3 (4.0-11.0)
--- NOTE | 2017-10-04 05:42 | XR ---
EXAM DATE: 10/04/2017 4:45 AM EDT AGE/SEX: 66 years / Male INDICATIONS: Short of breath, abdominal pain. CLINICAL DATA: This is the patient's initial encounter. Patient reports that signs and symptoms have been present for 3 days and indicates a pain score of 0/10. MEDICAL/SURGICAL HISTORY: Chronic obstructive pulmonary disease. Hypertension. polymyalgia No ne. COMPARISON: No prior exams available for comparison. FINDINGS: Single AP view of the chest. The lungs are clear. Cardiomediastinal silhouette within norm al limits. No evidence of pleural effusion or pneumothorax. CONCLUSION: No acute cardiopulmonary disease identified. Electronically signed by: Brice High MD 10/04/2017 5:41 AM EDT
[2017-10-04 05:44] LABS: Chloride 101 meq/L (98-107); Sodium 137 meq/L (136-145)
[2017-10-04 05:47] LABS: Calcium 9.2 mg/dL (8.5-10.1)
[2017-10-04 05:48] LABS: Albumin 3.9 g/dL (3.4-5.0); Anion Gap 10 meq/L (5-15); Blood Urea Nitrogen 7 mg/dL (7-18); Carbon Dioxide 25.9 meq/L (21.0-32.0); Glucose,Random 105 mg/dL (74-106); Magnesium 2.2 mg/dL (1.5-2.5)
[2017-10-04 05:50] LABS: Alanine Aminotransferase 21 U/L (12-78); Aspartate Aminotransferase 16 U/L (15-37); Glomerular Filtration Rate 85 mL/min (>89)
[2017-10-04 05:52] LABS: Total Protein 7.8 g/dL (6.4-8.2)
[2017-10-04 05:53] LABS: Alkaline Phosphatase 81 U/L (45-117); Lipase 1402 U/L (73-393)
[2017-10-04] MEDS ORDERED: Morphine Inj 4 MG/ML Vial IV.PUSH ONE (06:06)
[2017-10-04] MEDS ORDERED: Sod Chloride 0.9% Inj 1,000 ML IV.SIG ONE (06:06)
[2017-10-04] MEDS ORDERED: Morphine Inj 4 MG/ML Vial IV.PUSH PRN (06:32)
[2017-10-04] MEDS ORDERED: Sod Chloride 0.9% Inj 1,000 ML IV.CONT SCH ×2 (06:45→11:00)
[2017-10-04] MEDS ORDERED: Morphine Sulfate Inj 2 MG/ML Vial IV.PUSH PRN (09:33)
--- NOTE | 2017-10-04 10:18 | ECG ---
Date Performed: 10/04/2017 Time Performed: 04:34:51 PTAGE: 66 years EKG: Sinus rhythm MINIMAL ST DEPRESSION BORDERLINE ECG PREVIOUS TRACING : 08/07/2017 08.04 No significant change from previous tracing noted. DOCTOR: Danis Bush Interpretating Date/Time 10/04/2017 10:17:47
[2017-10-04] MEDS ORDERED: Polyethylene Glycol 3350 17 GM Packet PO PRN (10:33)
--- NOTE | 2017-10-04 10:49 | P.HPIM ---
History of Present Illness Primary Care Physician: Rigo Vang DO Chief Complaint: abdominal pain History of Present Illness: patient is a 66 y/o male with history of hypertension who presented to ER with abdominal pain. he says that he's had this pain and constipation for the past two weeks. he was prescribed laxatives by his PCP and had a BM a few days ago. he says that the pain is epigastric and was moderate to severe last night although he denies any abdominal pain today. he denies any nausea, emesis, fever or chills.he says that he has three-four drinks daily. - Diagnosis (1) Pancreatitis (2) Hypertension Inpatient Certification: I certify that the inpatient services were ordered in accordance with Medicare regulations governing the order. This includes certification that hospital inpatient services are reasonable and necessary and in the case of services not specified as inpatient-only under 42 CFR 419.22(n), that they are appropriately provided as inpatient services in accordance to with the 2-midnight benchmark under 43 CFR 412.3(e) Review of Systems All other systems reviewed negative except as stated in HPI PMFSH - History History Provided By: Patient - Medical History Medical History: Medical History (Last Updated 10/04/17 @ 05:28 by Bryanna Boyd) Arthritis COPD (chronic obstructive pulmonary disease) Chronic back pain GI bleeding HTN (hypertension) Polymyalgia Stomach ulcer - Surgical History Surgical History: Surgical History (Last Updated 10/04/17 @ 04:29 by Bryanna Boyd) History of left knee surgery - Tobacco History Second Hand Smoke Exposure: No Tobacco Use In Past 30 Days: Yes Smoking Status: Current every day smoker Tobacco Type: Cigarettes - Alcohol History How Often Do You Have a Drink Containing Alcohol: 4 or more times a week - Substance Use History Substance History: Active Abuse - Substance Use Type Marijuana Status: Active Route Used: Inhalation Reason for Use: Calm Down, Feels Good - Travel History Recent Travel Out of the Country Within the Last 8 Weeks: No - Immunization History Tetanus Immunization: Unsure Medications and Allergies Active Medications: Active Medications Albuterol (Duoneb Neb (Prn)) 1 ampul NEB Q4HR NEB PRN PRN Reason: SOB/Wheezing Aspirin (Ecotrin) 325 mg PO DAILY BEA Sodium Chloride (Ns Inj) 1,000 mls @ 125 mls/hr IV.CONT .Q8H BEA Morphine Sulfate (Morphine Inj) 2 mg IV.PUSH Q4H PRN PRN Reason: pain 6-10 Nitroglycerin (Nitro-Bid 2% Oint) 1 inch TOPICAL Q6HR [facility] Polyethylene Glycol (Miralax) 17 gm PO DAILY PRN PRN Reason: CONSTIPATION Sodium Chloride (Ns Inj) 2 ml IV.FLUSH BID BEA Sodium Chloride (Ns Inj) 2 ml IV.FLUSH UNSCH PRN PRN Reason: FLUSH AFTER USING IV ACCESS Allergies Allergy/AdvReac Type Severity Reaction Status Date / Time No Known Allergies Allergy Verified 10/04/17 05:29 Home Medications Medication Instructions Recorded Confirmed Type lisinopril 20 mg PO BID 10/04/17 10/04/17 History Exam Vital signs: Vital Signs 10/04/17 01:51 10/04/17 05:20 10/04/17 05:39 Temperature 97.4 F L Pulse Rate 14 L 75 65 Respiratory Rate 14 18 Blood Pressure 149/94 H 165/95 H Pulse Oximetry 99 100 10/04/17 08:27 10/04/17 09:00 Temperature 98.4 F Pulse Rate 77 69 Respiratory Rate 15 20 Blood Pressure 159/90 H 180/84 H Pulse Oximetry 97 Intake & Output 10/03/17 10/04/17 10/04/17 18:59 06:59 18:59 Intake Total 52 / 52 1000 / 1000 Balance 52 / 52 1000 / 1000 Weight 90.3 kg 91.5 kg Intake: IV 52 / 52 1000 / 1000 Pepcid PF Inj 20 MG In NS Inj 52 / 52 50 ML @ 104 mls/hr IV.SIG ONCE ONE Rx#:[id number] NS Inj 1,000 ML @ Wide Open IV. 1000 / 1000 SIG BOLUS ONE Rx#:[id number] Other: Weight On Admission 91.5 kg - Constitutional no acute distress - Routine HEENT Exam Eye: Present: PERRL - Routine Neck Exam Present: supple - Routine Respiratory Exam Present: CTA bilaterally - Routine Cardiovascular Exam Present: RRR - Routine Abdominal Exam Present: soft - Routine Extremities Exam Comments: no pedal edema. - Routine Neurological Exam Present: alert, oriented X3 Results - Labs CBC & Chem 7: 10/04/17 04:45 10/04/17 04:45 Labs: Short CBC 10/04/17 Range/Units 04:45 WBC 7.4 (4.0-11.0) th/mm3 Hgb 15.8 (13.0-17.0) gm/dL Hct 45.2 (39.0-51.0) % Plt Count 238 (150-450) th/mm3 BMP 10/04/17 04:45 Sodium 137 Potassium 4.0 Chloride 101 Carbon Dioxide 25.9 BUN 7 Creatinine 0.90 Calcium 9.2 Cardiac Enzymes 10/04/17 Range/Units 04:45 Troponin I Less than 0.02 L (0.02-0.05) ng/mL Liver Function 10/04/17 Range/Units 04:45 Total Bilirubin 1.0 (0.2-1.0) mg/dL AST 16 (15-37) U/L ALT 21 (12-78) U/L Alkaline Phosphatase 81 (45-117) U/L Albumin 3.9 (3.4-5.0) g/dL - Imaging Impressions Abdomen/Pelvis CT 10/04/17 04:26 CONCLUSION: 1. No acute findings in the abdomen and pelvis. 2. Moderate amount of stool in the transverse colon. No evidence of bowel dilatation. 3. Prominent bilateral hip arthrosis. Chest X-Ray 10/04/17 04:28 CONCLUSION: No acute cardiopulmonary disease identified. Caprini VTE Risk Assessment Caprini VTE Risk Assessment: Moderate/High Risk (score >= 2) Caprini Risk Assessment Model: Point Value = 1 Point Value = 2 Point Value = 3 Point Value = 5 Age 41-60 Minor surgery BMI > 25 kg/m2 Swollen legs Varicose veins or History of unexplained or recurrent spontaneous Oral contraceptives or hormone replacement Sepsis (< 1 month) Serious lung disease, including pneumonia (< 1 month) Abnormal pulmonary function Acute myocardial infarction Congestive heart failure (< 1 month) History of inflammatory bowel disease Medical patient at bed rest Age 61-74 Arthroscopic surgery Major open surgery (> 45 min) Laparoscopic surgery (> 45 min) Malignancy Confined to bed (> 72 hours) Immobilizing plaster cast Central venous access Age >= 75 History of VTE Family history of VTE Factor V Leiden Prothrombin [id number] Lupus anticoagulant Anticardiolipin antibodies Elevated serum homocysteine Heparin-induced thrombocytopenia Other congenital or acquired thrombophilia Stroke (< 1 month) Elective arthroplasty Hip, pelvis, or leg fracture Acute spinal cord injury (< 1 month) Prophylaxis Regimen: Total Risk Factor Score Risk Level Prophylaxis Regimen 0-1 Low Early ambulation 2 Moderate Order ONE of the following: *Sequential Compression Device (SCD) *Heparin 5000 units SQ BID 3-4 Higher Order ONE of the following medications: *Heparin 5000 units SQ TID *Enoxaparin/Lovenox 40 mg SQ daily (WT < 150 kg, CrCl > 30 mL/min) *Enoxaparin/Lovenox 30 mg SQ daily (WT < 150 kg, CrCl > 10-29 mL/min) *Enoxaparin/Lovenox 30 mg SQ BID (WT < 150 kg, CrCl > 30 mL/min) AND/OR *Sequential Compression Device (SCD) 5 or more Highest Order ONE of the following medications: *Heparin 5000 units SQ TID (Preferred with Epidurals) *Enoxaparin/Lovenox 40 mg SQ daily (WT < 150 kg, CrCl > 30 mL/min) *Enoxaparin/Lovenox 30 mg SQ daily (WT < 150 kg, CrCl > 10-29 mL/min) *Enoxaparin/Lovenox 30 mg SQ BID (WT < 150 kg, CrCl > 30 mL/min) AND *Sequential Compression Device (SCD) Assessment and Plan - Assessment (1) Pancreatitis Code(s): K85.90 - Acute pancreatitis without necrosis or infection, unspecified Status: Acute Plan: likely alcohol -induced. denies abdominal pain today. start on clear liquid diet - continue supportive care with IV fluid and pain control. (2) Hypertension Code(s): I10 - Essential (primary) hypertension Status: Chronic Plan: resume home meds and will monitor the BP. - Plan Discussed Condition With: the patient. Discharge Planning: within the next 24-48 hrs if stable. H&P: Quality - VTE Deep Vein Thrombosis/Pulmonary Embolism Present on Admission: No (1) Pancreatitis Qualifiers: Chronicity: acute (2) Hypertension Qualifiers: Hypertension type: essential hypertension Qualified Code(s): I10 - Essential (primary) hypertension
[2017-10-04] MEDS ORDERED: Pantoprazole Inj 40 MG Vial IV.PUSH SCH (11:00)
[2017-10-04] MEDS ORDERED: Lisinopril 20 MG Tablet PO SCH (21:00)
== END 2017-10-04 12:10 | disposition left against medical advice (07) ==
LOC: PHED 01:36 → PH3 01:36 → PHEDA 01:36 → PH3 08:39
PROVIDERS: ADMIT Internal Medicine; ATTEND Internal Medicine